=== PATIENT | female | born 1955 | race Two or more races ===

== ENCOUNTER → 2018-02-15 09:49 | Outpatient (CLI) | payer OTHER ==
[~2018-02-15 09:49] MED LIST: CALCIUM600 MG PO; COZAAR25 MG PO; EVISTA60 MG PO; FOLIC ACID1 MG PO; FOLTX TABLET1 EACH PO; GLIPIZIDE10 MG PO; JANUMET 50-5001 EACH PO; SYNTHROID50 MCG PO; VITAMIN D3400 UNI2 PO; ZETIA10 MG PO
== END | disposition home or self-care (01) ==
LOC: EKG 09:49
DX: I10 Essential (primary) hypertension (principal); R10.84 Generalized abdominal pain

== ENCOUNTER 2018-03-23 07:00 | Day surgery (SDC) | payer OTHER ==
[~2018-03-23] VITALS: Ht 149.9 cm; Wt 61.7 kg
== END 2018-03-23 13:00 | disposition home or self-care (01) ==
LOC: CIR.AMB 07:00 → O/R 09:30 → CIR.AMB 13:00
DX: C54.8 Malignant neoplasm of overlapping sites of corpus uteri (principal)

== ENCOUNTER 2018-11-09 06:36 | Day surgery (SDC) | payer OTHER | END 2018-11-09 10:00 | disposition home or self-care (01) | LOC: AMB-ENDOS 06:36 | DX: R19.8 Other specified symptoms and signs involving the digestive system and abdomen (principal) ==